=== PATIENT | female | born 1960 | race Caucasian/White ===

== ENCOUNTER 2016-12-23 09:05 | Emergency (ER) | payer OTHER ==
[~2016-12-23] VITALS: Ht 170.2 cm; Wt 60.3 kg
[~2016-12-23 09:05] MED LIST: CITA20TA19 PO; KLONOPIN PO; LAMICTAL PO
[2016-12-23] MEDS ORDERED: [UNRECOGNIZED DRUG - OTHER] (09:18)
--- NOTE | 2016-12-23 09:23 | NUR ---
DR AGUSTIN AT THE BEDSIDE FOR EVAL AND EXAM.
--- NOTE | 2016-12-23 09:28 | NUR ---
Patient discharged to home in stable conditon. Written and verbal after care instructions given. Patient verbalizes understanding of instructions.
[2016-12-23 09:29] VITALS: BP 113/61
== END 2016-12-23 09:30 | disposition home or self-care (01) ==
LOC: ER 09:05
DX: L03.031 Cellulitis of right toe (principal); Z88.0 Allergy status to penicillin; Z90.710 Acquired absence of both cervix and uterus
CPT/HCPCS: A4663

== ENCOUNTER 2018-11-04 13:07 | Emergency (ER) | payer OTHER ==
[~2018-11-04] VITALS: Ht 170.2 cm; Wt 68.0 kg
[~2018-11-04 13:07] MED LIST changes: +[UNRECOGNIZED DRUG - OTHER]
[2018-11-04] MEDS ORDERED: CITA10TA17 PO (13:19)
[2018-11-04] MEDS ORDERED: LAMO100T2 PO (13:19)
[2018-11-04] MEDS ORDERED: LORA2TAB PO (13:21)
[2018-11-04] MEDS ORDERED: RALO60TA PO (13:21)
--- NOTE | 2018-11-04 13:58 | NUR ---
Patient discharged to home in stable conditon. Written and verbal after care instructions given. Patient verbalizes understanding of instructions.
== END 2018-11-04 14:00 | disposition home or self-care (01) ==
LOC: ER 13:07
DX: J20.9 Acute bronchitis, unspecified (principal); M79.10 Myalgia, unspecified site; F12.10 Cannabis abuse, uncomplicated; Z90.710 Acquired absence of both cervix and uterus; Z88.0 Allergy status to penicillin; Z88.2 Allergy status to sulfonamides; Z79.899 Other long term (current) drug therapy
CPT/HCPCS: A4663